=== PATIENT | female | born 1985 | race Caucasian/White ===

== ENCOUNTER 2016-06-10 20:05 | Emergency (ER) | payer BC ==
[~2016-06-10] VITALS: Ht 157.5 cm; Wt 90.7 kg
[2016-06-10] MEDS ORDERED: LIDOCAINE 1%-EPI 1:100,000 20 ML VIAL TP ONE (21:00)
[2016-06-10 21:43] VITALS: BP 145/90
== END 2016-06-10 22:19 | disposition home or self-care (01) ==
LOC: ER 20:08
DX: L98.8 Other specified disorders of the skin and subcutaneous tissue (principal); R10.33 Periumbilical pain; Z88.2 Allergy status to sulfonamides
CPT/HCPCS: 10060; 99283; A4606; A6402; Z7610